=== PATIENT | female | born 1950 | race Caucasian/White ===

== ENCOUNTER 2017-09-28 13:54 | Outpatient (CLI) | payer MEDICARE ==
--- NOTE | 2017-09-28 16:25 | RAD ---
CERVICAL SPINE: INDICATIONS: Status post surgery. COMPARISON: None. FINDINGS: There is post procedural change of ACDF at C3-C4. Instrumentation projects in the expected position. Multilevel disk degenerative facet osteoarthritic change is similar. There is straightening of the normal cervical lordosis. The lateral masses are symmetric. IMPRESSION: Postoperative cervical spine. POS: CARLO
== END 2017-09-28 13:55 | disposition home or self-care (01) ==
LOC: TBSIIMAG 13:54
PROVIDERS: ATTEND Surgery
DX: M54.12 Radiculopathy, cervical region (principal); Z98.890 Other specified postprocedural states
CPT/HCPCS: 72040

== ENCOUNTER 2019-01-27 07:20 | Day surgery (SDC) | payer MEDICARE ==
[2019-01-26 12:10] VITALS: BMI 32.0
[2019-01-27 08:41] LABS: #Basophils 0.1 thou/uL (0.0-0.2); #Eosinphils 0.9 thou/uL (0.0-0.7); #Lymphocytes 1.2 thou/uL (1.20-3.40); #Monocytes 0.6 thou/uL (0.11-0.59); #Neutrophils 7.4 thou/uL (1.40-6.50); %Basophils 0.6 % (0.0-1.0); %Eosinophils 8.4 % (0.0-10.0); %Lymphocytes 11.7 % (21.0-51.0); %Monocytes 6.2 % (0.0-10.0); %Neutrophils 73.1 % (42.0-75.0); Hemoglobin 9.9 g/dL (12.0-16.0); Mean Corpuscular HGB CONC 32.5 g/dL (32.0-36.0); Mean Corpuscular Hemoglobin 30.5 pg (27.0-31.0); Mean Corpuscular Volume 93.8 fL (78.0-98.0); Mean Platelet Volume 8.3 fL (7.4-10.4); Platelet Count 233 thou/uL (130-400); RBC Distribution Width 13.8 % (11.5-14.5); Red Blood Cell (RBC) Count 3.25 mill/uL (4.20-5.40); White Blood Cell (WBC) Count 10.1 thou/uL (4.8-10.8)
[2019-01-27 08:48] LABS: PTT 29.5 SEC (22.9-36.1); Prothrombin Time 12.9 SEC (12.0-14.7)
[2019-01-27] MEDS ORDERED: Clindamycin/D5W 900 mg/50 ml Premix Bag ONE (08:57)
[2019-01-27] MEDS ORDERED: Levofloxacin 500 mg/D5W 100 ml Premix Bag ONE (08:57)
[2019-01-27 09:11] LABS: Anion Gap 11 mmol/L (10-20); BUN (Urea Nitrogen) 31 mg/dL (9.8-20.1); Calc. Creatinine Clearance 53 mL/min (70-130); Calcium 9.3 mg/dL (7.8-10.44); Carbon Dioxide 20 mmol/L (23-31); Chloride 114 mmol/L (98-107); Estimated GFR-MDRD 42; Glucose 102 mg/dL (80-115); Potassium 4.4 mmol/L (3.5-5.1); Sodium 141 mmol/L (136-145)
[2019-01-27] MEDS ORDERED: Sodium Chloride 0.9% 10 ML ONE (10:08)
[2019-01-27] MEDS ORDERED: Thrombin 5000 UNITS/5 ML VIAL ONE (10:08)
[2019-01-27] MEDS ORDERED: Ketamine 50 MG/ML (10ML VIAL) ONE (10:23)
[2019-01-27] MEDS ORDERED: Fentanyl 100 MCG/2 ML VIAL ONE ×4 (10:32→14:38)
[2019-01-27] MEDS ORDERED: Phenylephrine HCL 10 MG/ML VIAL ONE (11:28)
[2019-01-27] MEDS ORDERED: PHENYLEPHRINE-NS 100 MCG/ML 10 ML SYRINGE ONE (11:52)
[2019-01-27] MEDS ORDERED: Dexamethasone 20 MG/5 ML VIAL ONE (11:52)
[2019-01-27] MEDS ORDERED: PROPOFOL 200 MG/20 ML VIAL ONE (11:52)
[2019-01-27] MEDS ORDERED: Glycopyrrolate 0.2 MG/ML 5 ML SYRINGE ONE (11:52)
[2019-01-27] MEDS ORDERED: Lidocaine 1% PF 5 ML VIAL ONE (11:52)
[2019-01-27] MEDS ORDERED: ePHEDrine 50 MG/ML VIAL ONE (11:52)
[2019-01-27] MEDS ORDERED: Ondansetron PF 4 MG/2 ML Vial ONE (11:52)
[2019-01-27] MEDS ORDERED: Rocuronium Bromide 10 MG/ML (10ML VIAL) ONE (11:52)
[2019-01-27] MEDS ORDERED: Promethazine HCl 25 MG/ML VIAL SLOW IVP PRN (12:50)
[2019-01-27] MEDS ORDERED: Ondansetron HCl/PF 4 MG/2 ML Vial IVP PRN (12:50)
[2019-01-27] MEDS ORDERED: PACU-Morphine 4MG/ML VIAL SLOW IVP PRN (12:50)
[2019-01-27] MEDS ORDERED: HYDROmorphone 2 MG/ML VIAL SLOW IVP PRN (12:50)
[2019-01-27] MEDS ORDERED: Promethazine HCl 25 MG/ML VIAL IM PRN (12:50)
[2019-01-27] MEDS ORDERED: Morphine Sulfate 2 MG/ML SYRINGE SLOW IVP PRN (12:50)
[2019-01-27] MEDS ORDERED: Milk Of Magnesia 30 ML UDCUP PO PRN (13:10)
[2019-01-27] MEDS ORDERED: Mag-Al 1200 mg/1200 mg/30 ML UDCUP PO PRN (13:10)
[2019-01-27] MEDS ORDERED: Fleet Enema 133 ML BOT PR PRN (13:10)
[2019-01-27] MEDS ORDERED: traMADol HCl 50 MG TAB PO PRN (13:10)
[2019-01-27] MEDS ORDERED: Acetaminophen 325 MG TAB PO PRN (13:10)
[2019-01-27] MEDS ORDERED: Bisacodyl 10 MG SUPP PR PRN (13:10)
[2019-01-27] MEDS ORDERED: Acetaminophen/Codeine 30-300mg Tablet PO PRN (13:10)
[2019-01-27] MEDS ORDERED: Morphine 4 MG/ML VIAL SLOW IVP PRN (13:10)
[2019-01-27] MEDS ORDERED: Ondansetron PF 4 MG/2 ML Vial IVP PRN (13:10)
[2019-01-27] MEDS ORDERED: Mirtazapine 15 MG TAB PO PRN (13:14)
--- NOTE | 2019-01-27 13:51 | OP ---
DATE OF PROCEDURE: 01/27/2019 LOCATION: OR 11. WOUND CLASSIFICATION: Type 1 wound. HISTORIOGRAPHY TEACHER: Cade Campuzano PA-C PREPROCEDURE DIAGNOSES: Lumbar stenosis with low back and leg pain. POSTPROCEDURE DIAGNOSES: Lumbar stenosis with low back and leg pain. PROCEDURES PERFORMED: L4-L5 and L5-S1 laminectomies, partial facetectomies, and foraminotomies. DESCRIPTION OF PROCEDURE: After informed consent was obtained from the patient, the patient was brought to the OR. Proper patient, pause, and identification were carried out. She was placed under excellent endotracheal anesthesia and positioned prone on the OR table. All appropriate points were padded. We identified the L4, L5, and S1 dorsal spines and lamina. Linear abhilash was made over this region. This area was sterilely cleansed, prepared, and draped. Proper patient, pause, and identification were carried out. The wound was then opened in a combination of sharp, monopolar, and blunt dissection, and the L4, L5, and S1 dorsal spines and lamina were exposed. Localization film confirmed area of interest. Following localization, performed an L4, L5, and S1 laminectomies, partial facetectomies, and foraminotomies over the L4, L5, and S1 dorsal spines and lamina. We obtained excellent decompression of common dural tube and nerve roots. We had excellent decompression to the point, where I did not even feel a need to do a diskectomy to promote stability by preserving that. We assessed further decompression. Copious irrigation occurred throughout as did maximizing hemostasis. The wound was then closed in anatomic layers following sprinkling of vancomycin powder and hemostasis. The patient was then emerged from anesthesia. Job ID: [id number]
[2019-01-27] MEDS ORDERED: fentaNYL 50 mcg/hour Patch TD SCH (14:00)
[2019-01-27] MEDS: HYDROcodone/Acetaminophen 7.5/325 mg Tablet PO PRN ×2 (16:35→20:40)
[2019-01-27] MEDS: Gabapentin 300 MG CAP PO SCH ×2 (16:35→20:39)
[2019-01-27] MEDS: Sodium Chloride 0.9% 1,000 ML IV SCH (16:36)
[2019-01-27] MEDS: tiZANidine HCl 4 MG TAB PO PRN (20:39)
[2019-01-27] MEDS ORDERED: Atorvastatin Calcium 40 MG TAB PO SCH (21:00)
[2019-01-27] MEDS ORDERED: Lisinopril 5 MG TAB PO SCH (21:00)
[2019-01-28] MEDS: HYDROcodone/Acetaminophen 7.5/325 mg Tablet PO PRN ×2 (01:41→08:26)
[2019-01-28] MEDS: Sodium Chloride 0.9% 1,000 ML IV SCH (02:29)
[2019-01-28] MEDS: tiZANidine HCl 4 MG TAB PO PRN (05:59)
[2019-01-28] MEDS ORDERED: Levothyroxine Sodium 75 MCG TAB PO SCH (06:00)
[2019-01-28] MEDS: Gabapentin 300 MG CAP PO SCH (08:25)
[2019-01-28] MEDS ORDERED: Tamsulosin HCl 0.4 MG CAP PO SCH (09:00)
[2019-01-28] MEDS ORDERED: Allopurinol 300 MG TAB PO SCH (09:00)
[2019-01-28 09:01] VITALS: BP 135/65; TEMP 98
--- NOTE | 2019-01-28 10:35 | PRG ---
DATE OF SERVICE: 01/28/2019 Ms. Baltazar is postoperative day 1 from lumbar decompression. She is doing very well with resolution in her leg pain. As expected, she has soreness in her back related to surgery, however, is doing well otherwise. Plan for dismissal. Job ID: [id number]
== END 2019-01-28 12:30 | disposition home or self-care (01) ==
LOC: SDC 07:20 → SURG A 14:58 → SDC 01-28 12:30
PROVIDERS: ATTEND Surgery
PROC: 01NB0ZZ Release Lumbar Nerve, Open Approach (ICD-10-PCS; principal; 2019-01-27)
DX: M48.061 Spinal stenosis, lumbar region without neurogenic claudication (principal); M51.16 Intervertebral disc disorders with radiculopathy, lumbar region; M51.17 Intervertebral disc disorders with radiculopathy, lumbosacral region; Z91.048 Other nonmedicinal substance allergy status; Z88.1 Allergy status to other antibiotic agents; Z88.8 Allergy status to other drugs, medicaments and biological substances; Z91.041 Radiographic dye allergy status; Z88.0 Allergy status to penicillin; Z79.01 Long term (current) use of anticoagulants; Z79.891 Long term (current) use of opiate analgesic; Z79.899 Other long term (current) drug therapy
CPT/HCPCS: 36415; 76000; 80048; 85025; 85610; 85730; J0131; J1100; J1956; J2001; J2270; J2370; J2405; J2704; J3010; J3370; J3490